=== PATIENT | male | born 1985 | race Caucasian/White ===

== ENCOUNTER → 2019-02-19 | Outpatient (CLI) | payer OTHER ==
[~2019-02-19] MED LIST: CLON2 PO; CLOT1TC TOP; ESCI10 PO; LAMO25 PO; Naprosyn500 MG PO; ZOLP10 PO
[2019-02-19 13:35] LABS: Stool Occult Bld Immuno 1 Negative (NEGATIVE)
== END | disposition home or self-care (01) ==
LOC: LAB EV 09:53
PROVIDERS: Physician Assistant
DX: R19.5 Other fecal abnormalities (principal)
CPT/HCPCS: 82274; 83993

== ENCOUNTER → 2020-06-18 | Outpatient (CLI) | payer MEDICARE, OTHER ==
[2020-06-18 11:42] LABS: Follicle Stimulating Hormone 2.1 mIU/ml (0.7-10.8)
[2020-06-19 11:35] LABS: Prolactin 11.1 ng/mL (2.5-17.4)
== END | disposition home or self-care (01) ==
LOC: LAB SHORT 08:34
PROVIDERS: Family Medicine
DX: E29.1 Testicular hypofunction (principal); R53.83 Other fatigue
CPT/HCPCS: 36415; 83001; 83002; 84146; 84403

== ENCOUNTER → 2020-09-02 | Outpatient (CLI) | payer OTHER ==
[2020-09-04 02:19] LABS: CHLAMYDIA TRACHOMATIS, NAA Negative (Negative)
== END ==
LOC: LAB 14:10 → LAB SHORT 14:10
PROVIDERS: Physician Assistant Medical
DX: R36.9 Urethral discharge, unspecified (principal)
CPT/HCPCS: 87491; 87591